=== PATIENT | male | born 1955 | race Caucasian/White ===

== ENCOUNTER 2017-11-29 10:42 | Observation (INO) ==
[2017-11-29 11:20] LABS: Basophils % 0.3 %; Eosinophils # 0.3 K/mcL (0.0-0.6); Eosinophils % 2.8 %; Hematocrit 40.8 % (37.5-50.1); Hemoglobin 13.9 g/dL (12.9-16.9); Immature Granulocytes % 0.2 % (0-4); Lymphocytes # 2.5 K/mcL (0.6-4.6); Lymphocytes % 28.2 %; Mean Corpuscular HGB Conc 34.1 g/dL (31.6-35.5); Mean Corpuscular Hemoglobin 29.4 pg (28.0-33.3); Mean Corpuscular Volume 86.4 fL (83.0-100.0); Mean Platelet Volume 8.7 fL (9.4-12.4); Monocytes # 0.6 K/mcL (0.0-1.3); Monocytes % 7.1 %; Neutrophils # 5.5 K/mcL (1.6-8.9); Platelet Count 253 K/mcL (140-400); Red Blood Count 4.72 M/mcL (4.19-5.50); Red Cell Distribution Width 13.9 % (11.5-14.5); Segmented Neutrophils % 61.4 %
[2017-11-29 11:26] LABS: Bilirubin,Urine Negative (Negative); Blood,Urine Negative (Negative); Clarity,Urine Clear (Clear); Color,Urine Yellow (Yellow); Glucose,Urine (UA) >=1000 mg/dL (Normal); Ketones,Urine Negative (Negative); Leukocyte Esterase,Urine Negative (Negative); Nitrite,Urine Negative (Negative); Protein,Urine Negative (Neg-Trace); Specific Gravity,Urine 1.016 (1.010-1.025); Urobilinogen,Urine Normal (Normal)
--- NOTE | 2017-11-29 11:29 | Emergency Department Note ---
Disposition Clinical Impression: Abdominal pain Qualifiers: Abdominal location: left lower quadrant Qualified Code(s): R10.32 - Left lower quadrant pain Disposition: Admitted As Inpatient Condition: Good Instructions: Abdominal Pain (ED) Reasons to Return/Additional Instructions: Return for worsening symptoms problems or concerns. Referrals: Corine Navarrete MANAGER INSURANCE [Primary Care Provider] - Ruben Blackwell DO [Partnered Physician] - Forms: ED Satisfaction Letter, Work/School Release Time of Disposition: 14:26 Abdominal Pain HPI - General Chief Complaint: ED Abdominal Pain Stated Complaint: ABD Pain(sent from PCP) Time Seen by Provider: 11/29/17 10:49 Source: patient Mode of arrival: ambulatory Limitations: no limitations Nursing Notes Reviewed: Yes Vital Signs Reviewed: Yes - History of Present Illness HPI Narrative: 62-year-old with a history of diverticular disease and had a colonoscopy done whose had persistent abdominal pain for the last several weeks. Patient was placed on antibiotics really hasn't gotten any better. Patient was seen by gastroenterology today concern was persistent diverticular disease versus abscess. Pt Subjective Complaint: abdominal pain Onset (ago): week(s) Consistency: constant Location: LLQ Pain Scale: 7 Quality: aching Radiation: none Migration to: no migration Improves with: nothing Worsens with: nothing Associated symptoms: Reports: denies other symptoms Treatments prior to arrival: none - Related Data Previous Rx's Medication Instructions Recorded cephALEXin [Keflex] 500 mg PO TID 10 Days capsule 08/16/16 Allergies Allergy/AdvReac Type Severity Reaction Status Date / Time No Known Allergies Allergy Verified 08/16/16 15:58 All systems ED: reviewed and negative except as stated. Constitutional: Denies: fever, chills, weakness, weight change Eyes: Denies: eye pain, eye discharge, vision change ENT ED: Denies: ear pain, throat pain, dental pain, hearing loss, epistaxis, congestion, dysphagia Cardiovascular: Denies: chest pain, palpitations, dyspnea on exertion, edema, syncope Respiratory: Denies: cough, dyspnea, wheezes, hemoptysis, stridor Gastrointestinal: Reports: abdominal pain. Denies: nausea, vomiting, diarrhea, constipation, hematemesis, melena, hematochezia Genitourinary: Denies: urgency, dysuria, frequency, hematuria Musculoskeletal: Denies: back pain, neck pain, arthralgia, myalgia Integumentary: Denies: rash, abrasion, lesions Neurological: Denies: headache, weakness, numbness, paresthesias, confusion, abnormal gait, vertigo Psychiatric: Denies: anxiety, depression, suicidal thoughts, homicidal thoughts , auditory hallucinations, visual hallucinations Endocrine: Denies: fatigue Hematological/Lymphatic: Denies: easy bleeding, easy bruising Allergic/Immunologic: Denies: facial swelling, urticaria Abdominal Pain PMH - Past Medical History Medical history: Reports: diabetes, hyperlipidemia Male Surgical History: Reports: other Psychiatric history: Reports: no psych history - Social History Smoking status: Former smoker Alcohol use: Reports: none Drug use: Reports: none Physical Exam - General Limitations: no limitations General appearance: alert - Head Head exam: atraumatic, normocephalic, normal inspection - Eye Eye exam: Present: normal appearance, PERRL, EOMI - ENT ENT exam: normal exam, normal oropharynx, mucous membranes moist - Neck Neck exam: Present: normal inspection, full ROM, trachea midline - Respiratory Respiratory exam: Present: normal lung sounds bilaterally - Cardiovascular Cardiovascular exam: Present: regular rate, normal rhythm, normal heart sounds - Abdominal Exam Abdominal exam: Present: tenderness. Absent: guarding, rebound Abdominal tenderness: Present: LLQ - Extremities Exam Extremities exam: Present: normal inspection, full ROM. Absent: tenderness, pedal edema - Expanded Lower Extremity Exam Neurovascular/Tendon exam: Absent: motor deficit, sensory deficit, tendon deficit Gait: observed and normal - Back Exam Back exam: Present: normal inspection, full ROM. Absent: tenderness - Neurological Exam Neurological exam: Present: alert, oriented X3 - Psychiatric Psychiatric exam: Present: normal affect, normal mood - Skin Skin exam: Present: warm, dry, intact, normal color Course - Reevaluation(s) Reevaluation #1: 62-year-old with persistent abdominal pain for last several weeks. Patient has seen gastroenterology had a colonoscopy that showed diverticulosis. The patient has had kidney stones in the past. Patient was sent here by gastroenterology for CT with contrast to rule out abscess or diverticulitis. CT was negative white counts normal urine is clear. I do not find an etiology for his abdominal pain. I'm going to send him to surgery as he did seem to have a little bit of weakness to the distal left of midline and lower abdominal wall. Time: 14:25 - Consultations Consultation #1: Discussed with the Katy Belcher. Time: 15:55 Consultation #2: Stress with Dr. Obando, admit. Time: 15:56 Vital Signs Temperature 97.7 F 11/29/17 10:45 Pulse Rate 76 11/29/17 10:45 Respiratory Rate 18 11/29/17 10:45 Blood Pressure 154/93 11/29/17 10:45 O2 Sat by Pulse Oximetry 100 11/29/17 10:45 Temperature 97.7 F 11/29/17 10:45 Pulse Rate 80 11/29/17 15:44 Respiratory Rate 15 11/29/17 15:44 Blood Pressure 146/92 11/29/17 15:44 O2 Sat by Pulse Oximetry 98 11/29/17 15:44 Oxygen Delivery Oxygen Delivery Room Air Abdominal Pain - Lab Data Lab results reviewed: Yes I reviewed the patient's lab results. Result diagrams: 11/29/17 11:12 11/29/17 11:12 Lab Results 11/29/17 11/29/17 11/29/17 Range/Units 11:12 11:12 11:15 WBC 9.0 (4.3-11.1) K/mcL RBC 4.72 (4.19-5.50) M/mcL Hgb 13.9 (12.9-16.9) g/dL Hct 40.8 (37.5-50.1) % MCV 86.4 (83.0-100.0) fL MCH 29.4 (28.0-33.3) pg MCHC 34.1 (31.6-35.5) g/dL RDW 13.9 (11.5-14.5) % Plt Count 253 (140-400) K/mcL MPV 8.7 L (9.4-12.4) fL Immature Gran % 0.2 (0-4) % Seg Neutrophils % 61.4 % Lymphocytes % 28.2 % Monocytes % 7.1 % Eosinophils % 2.8 % Basophils % 0.3 % Neutrophils # 5.5 (1.6-8.9) K/mcL Lymphocytes # 2.5 (0.6-4.6) K/mcL Monocytes # 0.6 (0.0-1.3) K/mcL Eosinophils # 0.3 (0.0-0.6) K/mcL Basophils # 0.0 (0.0-0.2) K/mcL Sodium 137 (136-145) mEq/L Potassium 4.4 (3.5-5.1) mEq/L Chloride 106 (98-107) mEq/L Carbon Dioxide 28 (23-29) mEq/L BUN 18 (8-23) mg/dL Creatinine 0.87 (0.70-1.30) mg/dL Est GFR ( Amer) > 60 (> 60) Est GFR (Non-Af Amer) > 60 (> 60) BUN/Creatinine Ratio 21 (6-26) Glucose 113 H (70-105) mg/dL Calculated Osmolality 287 (280-300) Calcium 9.1 (8.6-10.3) mg/dL Total Bilirubin 0.4 (0.3-1.0) mg/dL Direct Bilirubin 0.1 (0.0-0.2) mg/dL Indirect Bilirubin 0.3 (0.0-1.2) mg/dL AST 21 (13-39) Units/L ALT 25 (7-52) Units/L Alkaline Phosphatase 58 (34-104) Units/L Serum Total Protein 7.2 (6.4-8.9) g/dL Albumin 4.0 (3.5-5.7) g/dL Globulin 3.2 (2.4-3.5) g/dL Albumin/Globulin Ratio 1.3 (1.1-2.2) Amylase 52 (29-103) Units/L Lipase 38 (11-82) Units/L Urine Color Yellow (Yellow) Urine Clarity Clear (Clear) Urine pH 6.0 (5.0-8.0) pH Units Ur Specific [place] 1.016 (1.010-1.025) Urine Protein Negative (Neg-Trace) mg/dL Urine Glucose (UA) >=1000 H (Normal) mg/dL Urine Ketones Negative (Negative) mg/dL Urine Blood Negative (Negative) Urine Nitrite Negative (Negative) Urine Bilirubin Negative (Negative) Urine Urobilinogen Normal (Normal) mg/dL Ur Leukocyte Esterase Negative (Negative) Ur Culture Indicated? NO (NO) - Radiology Data Radiology results reviewed: Yes I reviewed the patient's radiology results. Abdomen/Pelvis CT 11/29/17 12:30 IMPRESSION: 1. No CT finding to account for patient's left lower quadrant abdominal pain. D/ / 11/29/2017 13:19:40 Ahmet Russell MD / trena Interpreting Provider: Ahmet Russell MD
[2017-11-29 11:43] LABS: Alanine Aminotransferase 25 Units/L (7-52); Albumin/Globulin Ratio 1.3 (1.1-2.2); Alkaline Phosphatase 58 Units/L (34-104); Amylase 52 Units/L (29-103); Aspartate Amino Transferase 21 Units/L (13-39); BUN/Creatinine Ratio 21 (6-26); Bilirubin,Direct 0.1 mg/dL (0.0-0.2); Bilirubin,Indirect 0.3 mg/dL (0.0-1.2); Bilirubin,Total 0.4 mg/dL (0.3-1.0); Blood Urea Nitrogen 18 mg/dL (8-23); Calcium 9.1 mg/dL (8.6-10.3); Carbon Dioxide 28 mEq/L (23-29); Chloride 106 mEq/L (98-107); Globulin 3.2 g/dL (2.4-3.5); Glucose 113 mg/dL (70-105); Lipase 38 Units/L (11-82); Osmolality,Calculated 287 (280-300); Potassium 4.4 mEq/L (3.5-5.1); Sodium 137 mEq/L (136-145); Total Protein 7.2 g/dL (6.4-8.9); eGFR For African Americans > 60 (> 60); eGFR For Non-African Americans > 60 (> 60)
[2017-11-29] MEDS: cefTRIAXone 2,000 MG in Water for inj. (sterile) 20 ML IVP SCH (17:32)
--- NOTE | 2017-11-29 17:53 | Gastroenterology Consult Note ---
Date of Encounter: 11/29/17 Time of Encounter: 17:49 - Assessment and plan (1) Abdominal pain Current Visit: Yes Status: Acute Qualified Code(s): R10.32 - Left lower quadrant pain - Time Spent With Patient Total time spent is greater than 50% in coordination of care (as documented) at patient's floor/unit and/or counseling patient: 25 - 35 minutes GI History of Present Illness - Data of Consult Requesting Physician: Dilshad Santos - Consult Narrative History of present illness: Mr. Donohue is a 62 year old male who presents with LLQ pain and not feeling well for the past 10 days. He had been to the ED at [place] and had a noncontrast CT of the abdomen and pelvis and discharged home about 10 days ago. He saw me in clinic about a week ago with the same complaint. A presumptive diagnosis of acute diverticulitis was made and patient treated with Cipro and Flagyl. He could not tolerate Flagyl and was continued on Cipro and saw me today but, reported no improvement in his symptoms. I sent him down to the ED to be worked up. A contrast CT of the abd and pelvis was negative. He was then admitted for a course of IV Antibiotics and bowel rest. Past Med Surg Social Fam HX - Past Medical History Medical history: diabetes, hyperlipidemia Psychiatric history: no psych history - Social History Smoking Status: Former smoker Smokeless Tobacco Status: No Alcohol use: none Drug use: none - Gastrointestinal Gastrointestinal: Present: as per HPI - Constitutional Constitutional: as per HPI, fatigue - Constitutional Vitals: Temp Pulse Resp BP Pulse Ox 97.1 F L 90 16 137/87 97 11/29/17 17:34 11/29/17 17:34 11/29/17 17:34 11/29/17 17:34 11/29/17 17:34 Results - Labs CBC & Chem 7: 11/29/17 11:12 11/29/17 11:12 Labs: Last Result Calcium 9.1 mg/dL (8.6-10.3) 11/29/17 11:12 Entire Visit Hgb 13.9 g/dL (12.9-16.9) 11/29/17 11:12 Hct 40.8 % (37.5-50.1) 11/29/17 11:12 Total Bilirubin 0.4 mg/dL (0.3-1.0) 11/29/17 11:12 AST 21 Units/L (13-39) 11/29/17 11:12 ALT 25 Units/L (7-52) 11/29/17 11:12 Amylase 52 Units/L (29-103) 11/29/17 11:12 Lipase 38 Units/L (11-82) 11/29/17 11:12 Consult Discharge Plan - Plan Referrals: Corine Navarrete, PROPERTY INSPECTOR [Primary Care Provider] -
--- NOTE | 2017-11-29 18:16 | Internal Med History&Physical ---
Date of Encounter: 11/29/17 Time of Encounter: 18:14 Assessment and Plan (1) Diabetes 1.5, managed as type 2 Current visit: Yes Status: Acute Chronic we will resume home medication and place on sliding scale (2) Hyperlipemia Current visit: Yes Status: Chronic Chronic Qualifiers: Hyperlipidemia type: pure hypercholesterolemia Qualified Code(s): E78.00 - Pure hypercholesterolemia, unspecified; E78.0 - Pure hypercholesterolemia (3) Obesity Current visit: Yes Status: Chronic Qualifiers: Obesity type: due to excess calories Obesity classification: adult class 2 (BMI 35 - 39.9) Serious obesity comorbidity presence: unspecified whether serious comorbidity present Body mass index: unspecified BMI Qualified Code( s): E66.09 - Other obesity due to excess calories (4) Abdominal pain Current visit: Yes Status: Acute y due to diverticulitis she in the rash enterologist started back on antibiotic Qualifiers: Abdominal location: left lower quadrant Qualified Code(s): R10.32 - Left lower quadrant pain Internal Medicine - H&P: HPI Chief complaint: abd pain Admitted From: Emergency Dept Plans for Post Hospital Care: Home History of present illness: Mr. Donohue is a 62 year old male Patient with history of obesity, diabetes, high cholesterol, patient was sent from GI office due to persistent abdominal pain ongoing and recurrent for about 4 week he was treated for diverticulitis but he was unable to tolerate some of the antibiotics patient now being admitted for further IV antibiotic treatment he has some diarrhea yesterday no nausea no vomiting patient was seen in the office and also seenin emergency room by a brick mason the consultation note noted Past Med Surg Social Fam HX - Past Medical History Medical history: diabetes, hyperlipidemia Psychiatric history: no psych history - Social History Smoking Status: Former smoker Smokeless Tobacco Status: No Alcohol use: none Drug use: none Internal Medicine - H&P: Meds cephALEXin [Keflex] 500 mg PO TID 10 Days capsule 08/16/16 [Rx] 3 Allergy/AdvReac Type Severity Reaction Status Date / Time No Known Allergies Allergy Verified 08/16/16 15:58 All Systems PM: A 10-system review of systems was performed and is negative for pertinent findings except as documented above in the HPI. - Constitutional Constitutional: no chills, no fever(s), no night sweats - EENT Eyes: no change in vision, no discharge, no pain, no photophobia Ears: no ear discharge, no ear pain, no tinnitus Nose, mouth and throat: no dysphagia, no nasal discharge, no neck pain, no sore throat - Cardiovascular Cardiovascular ROS IM: no chest pain, no diaphoresis, no dyspnea, no lightheadedness, no palpitations, no syncope - Respiratory Respiratory: no cough, no dyspnea, no wheezing, no excessive phlegm production - Gastrointestinal Gastrointestinal: abdominal pain, bloating, diarrhea - Musculoskeletal Musculoskeletal ROS IM: no numbness, no tingling - Constitutional Vitals: Temp Pulse Resp BP Pulse Ox 97.1 F L 90 16 137/87 97 11/29/17 17:34 11/29/17 17:34 11/29/17 17:34 11/29/17 17:34 11/29/17 17:34 - Eye Eye exam: Present: PERRL, conjuntiva pink, sclera anicteric Pupils: Present: PERRL - Neck Neck exam general surgery: Present: supple, trachea midline. Absent: lymphadenopathy - Respiratory Respiratory exam: Present: CTAB. Absent: accessory muscle use, rales, rhonchi, wheezes - Cardiovascular Cardiovascular exam: Present: RRR, +S1, +S2. Absent: diastolic murmur, gallop, rubs, systolic murmur - GI/Abdominal GI/Abdominal exam: Present: distended, tenderness - Extremities Exam Extremities exam: Present: warm, radial pulses palpable and symmetrical. Absent : calf tenderness, cyanotic, pedal edema Internal Med - H&P Results - Labs CBC & Chem 7: 11/29/17 11:12 11/29/17 11:12
[2017-11-29] MEDS ORDERED: Naloxone 0.4 MG/ML INJ IVP PRN (18:21)
[2017-11-29] MEDS ORDERED: Acetaminophen 325 MG TABLET PO PRN (18:21)
[2017-11-29] MEDS ORDERED: D5% in Water 1,000 ML IVC PRN (18:26)
[2017-11-29] MEDS ORDERED: Dextrose Gel 15 GM/37.5 ML TUBE PO PRN ×2 (18:26)
[2017-11-29] MEDS ORDERED: *HR* Dextrose 50 % in Water (Syg) 50 ML SYRINGE IVP PRN (18:26)
[2017-11-29] MEDS: 0.9 % Sodium Chloride 1,000 ML IVC SCH (18:38)
[2017-11-30 05:14] LABS: Hematocrit 38.8 % (37.5-50.1); Hemoglobin 12.9 g/dL (12.9-16.9); Mean Corpuscular HGB Conc 33.2 g/dL (31.6-35.5); Mean Corpuscular Hemoglobin 28.9 pg (28.0-33.3); Mean Corpuscular Volume 86.8 fL (83.0-100.0); Mean Platelet Volume 9.1 fL (9.4-12.4); Platelet Count 253 K/mcL (140-400); Red Blood Count 4.47 M/mcL (4.19-5.50); Red Cell Distribution Width 14.1 % (11.5-14.5)
[2017-11-30 05:24] LABS: Alanine Aminotransferase 21 Units/L (7-52); Albumin 3.5 g/dL (3.5-5.7); Albumin/Globulin Ratio 1.3 (1.1-2.2); Alkaline Phosphatase 50 Units/L (34-104); Aspartate Amino Transferase 19 Units/L (13-39); BUN/Creatinine Ratio 16 (6-26); Bilirubin,Total 0.5 mg/dL (0.3-1.0); Blood Urea Nitrogen 13 mg/dL (8-23); Calcium 8.3 mg/dL (8.6-10.3); Carbon Dioxide 25 mEq/L (23-29); Chloride 108 mEq/L (98-107); Chol/HDL Ratio 3.9 (0-4.9); Cholesterol 144 mg/dL (< 200); Globulin 2.8 g/dL (2.4-3.5); Glucose 99 mg/dL (70-105); HDL Cholesterol 37 mg/dL (40-59); LDL Cholesterol,Calculated 84 mg/dL (0-99); Magnesium 1.9 mg/dL (1.6-2.6); Osmolality,Calculated 286 (280-300); Potassium 3.9 mEq/L (3.5-5.1); Sodium 138 mEq/L (136-145); Total Protein 6.3 g/dL (6.4-8.9); Triglycerides 113 mg/dL (< 150); eGFR For African Americans > 60 (> 60); eGFR For Non-African Americans > 60 (> 60)
[2017-11-30] MEDS: *HR* Enoxaparin 40 MG/0.4 ML SYRINGE SQ SCH (05:47)
[2017-11-30] MEDS: 0.9 % Sodium Chloride 1,000 ML IVC SCH (07:00)
[2017-11-30] MEDS: Insulin LISPRO 300 UNITS/3 ML VIAL SQ SCH ×3 (07:30→16:27)
--- NOTE | 2017-11-30 08:55 | Internal Med Progress Note ---
<Galina Varela - Last Filed: 11/30/17 10:21> Date of Encounter: 11/30/17 Time of Encounter: 08:52 - Assessment and plan (1) Abdominal pain Current Visit: Yes Status: Acute Assessment and plan: Hypogastric and LLQ tenderness, pressure and bloating. Treated for diverticulitis due to recent colonscopy showing diverticulum by Dr. Pat who recommended that patient go into ED. He has been on PO antibiotis by Dr. Pat for suspected diverticulitis. CT Abd demonstrated no acute process. afebrile, WBC WNL - Rocephin day 2 -soft diet - supportive care -PPI Qualifiers: Abdominal location: left lower quadrant Qualified Code(s): R10.32 - Left lower quadrant pain (2) Diabetes 1.5, managed as type 2 Current Visit: Yes Status: Acute Assessment and plan: - Sliding scale insulin - Continue home medications (3) Hyperlipemia Current Visit: Yes Status: Chronic Assessment and plan: Chronic - Continue with home medication Qualifiers: Hyperlipidemia type: pure hypercholesterolemia Qualified Code(s): E78.00 - Pure hypercholesterolemia, unspecified; E78.0 - Pure hypercholesterolemia (4) Obesity Current Visit: Yes Status: Chronic 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 He is resting comfortably and eating breakfast. Patient states that he is feeling much improved since yesterday and that he is currently not in any pain but still has abdominal pressure. he states that he ate yesterday afternoon and that he had a normal bowel movement this morning. He does request that Protonix be ordered for him as he is on it at home and gets reflux without it. Otherwise he has not acute complaints. - Constitutional Vitals: Temp Pulse Resp BP Pulse Ox 98.0 F 73 14 112/71 97 11/30/17 07:24 11/30/17 07:24 11/30/17 07:24 11/30/17 07:24 11/30/17 07:24 General appearance: Present: A&O X 3, pleasant, no acute distress, obese, answers questions appropriately - Head Head exam: Present: normal inspection - Neck Neck exam general surgery: Present: normal inspection - Respiratory Respiratory exam: Present: CTAB. Absent: accessory muscle use, rales, rhonchi, wheezes - Cardiovascular Cardiovascular exam: Present: RRR - GI/Abdominal GI/Abdominal exam: Present: normal bowel sounds, soft, tenderness (hypogastric) , no peritoneal signs. Absent: distended, firm, guarding, rigid - Neurological Exam Neurological exam: Present: alert, oriented X3 - Skin Skin exam: Present: dry, normal color, warm Internal Medicine: Result - Labs CBC & Chem 7: 11/30/17 04:23 11/30/17 04:23 Labs: Short CBC 11/30/17 Range/Units 04:23 WBC 8.0 (4.3-11.1) K/mcL Hgb 12.9 (12.9-16.9) g/dL Hct 38.8 (37.5-50.1) % Plt Count 253 (140-400) K/mcL BMP 11/30/17 04:23 Sodium 138 Potassium 3.9 Chloride 108 H Carbon Dioxide 25 BUN 13 Creatinine 0.79 Glucose 99 Calcium 8.3 L Cardiac Enzymes 11/29/17 Range/Units 19:39 Troponin I < 0.03 (< 0.04) ng/mL Liver Function 11/30/17 Range/Units 04:23 Total Bilirubin 0.5 (0.3-1.0) mg/dL AST 19 (13-39) Units/L ALT 21 (7-52) Units/L Alkaline Phosphatase 50 (34-104) Units/L Albumin 3.5 (3.5-5.7) g/dL Consult Discharge Plan - Plan Referrals: Corine Navarrete, STOCK LIFTER [Primary Care Provider] - <Dilshad Santos H - Last Filed: 11/30/17 10:45> Date of Encounter: 11/30/17 - Constitutional Vitals: Temp Pulse Resp BP Pulse Ox 98.0 F 73 14 112/71 97 11/30/17 07:24 11/30/17 07:24 11/30/17 07:24 11/30/17 07:24 11/30/17 10:22 Internal Medicine: Result - Labs CBC & Chem 7: 11/30/17 04:23 11/30/17 04:23 Labs: Short CBC 11/30/17 Range/Units 04:23 WBC 8.0 (4.3-11.1) K/mcL Hgb 12.9 (12.9-16.9) g/dL Hct 38.8 (37.5-50.1) % Plt Count 253 (140-400) K/mcL BMP 11/30/17 04:23 Sodium 138 Potassium 3.9 Chloride 108 H Carbon Dioxide 25 BUN 13 Creatinine 0.79 Glucose 99 Calcium 8.3 L Cardiac Enzymes 11/29/17 Range/Units 19:39 Troponin I < 0.03 (< 0.04) ng/mL Liver Function 11/30/17 Range/Units 04:23 Total Bilirubin 0.5 (0.3-1.0) mg/dL AST 19 (13-39) Units/L ALT 21 (7-52) Units/L Alkaline Phosphatase 50 (34-104) Units/L Albumin 3.5 (3.5-5.7) g/dL - Attending Attestation Acute diverticulitis that failed outpatient therapy Continue Rocephin day 2 May try clear liquids per GI I examined this patient and my medical decision-making was reviewed with the Resident Physician. I agree with the documented findings, disposition and treatment plan as described except to the extent set forth below.
--- NOTE | 2017-11-30 09:55 | Event Note ---
<Rupa Belcher - Last Filed: 11/30/17 09:53> Date of Encounter: 11/30/17 Time of Encounter: 09:25 Pt seen in follow up per Dr Pta's request. He is awake and sitting on the side of the bed. He was given a regular diet yesterday and had some lower abdominal pain following. He needs clear liquids only. Will continue IV antibiotics. <Chester Pat - Last Filed: 12/06/17 10:36> Date of Encounter: 11/30/17
[2017-11-30] MEDS: Pantoprazole 40 MG VIAL IVP SCH (10:47)
[2017-11-30] MEDS: cefTRIAXone 2,000 MG in Water for inj. (sterile) 20 ML IVP SCH (16:27)
[2017-11-30] MEDS ORDERED: Insulin LISPRO 300 UNITS/3 ML VIAL SQ SCH (21:00)
[2017-12-01] MEDS: *HR* Enoxaparin 40 MG/0.4 ML SYRINGE SQ SCH (05:53)
[2017-12-01 06:01] LABS: BUN/Creatinine Ratio 13 (6-26); Blood Urea Nitrogen 9 mg/dL (8-23); Calcium 8.5 mg/dL (8.6-10.3); Carbon Dioxide 24 mEq/L (23-29); Chloride 109 mEq/L (98-107); Glucose 106 mg/dL (70-105); Osmolality,Calculated 291 (280-300); Potassium 3.9 mEq/L (3.5-5.1); Sodium 141 mEq/L (136-145); eGFR For African Americans > 60 (> 60); eGFR For Non-African Americans > 60 (> 60)
[2017-12-01 07:20] VITALS: BP 127/84
[2017-12-01] MEDS ORDERED: Loratadine 10 MG TABLET PO SCH (09:00)
[2017-12-01] MEDS ORDERED: Aspirin Enteric Coated 81 MG Tablet PO SCH (09:00)
[2017-12-01] MEDS: Pantoprazole 40 MG VIAL IVP SCH (09:13)
[2017-12-01] MEDS: Insulin LISPRO 300 UNITS/3 ML VIAL SQ SCH (09:13)
--- NOTE | 2017-12-01 09:58 | Discharge Summary ---
<Galina Varela - Last Filed: 12/01/17 09:56> Date of Encounter: 12/01/17 Time of Encounter: 09:45 - Discharge Diagnosis (1) Abdominal pain Priority: Primary Status: Acute Qualifiers: Abdominal location: left lower quadrant Qualified Code(s): R10.32 - Left lower quadrant pain (2) Diabetes 1.5, managed as type 2 Priority: Secondary Status: Acute (3) Hyperlipemia Priority: Secondary Status: Chronic Qualifiers: Hyperlipidemia type: pure hypercholesterolemia Qualified Code(s): E78.00 - Pure hypercholesterolemia, unspecified; E78.0 - Pure hypercholesterolemia (4) Obesity Priority: Secondary Status: Chronic Qualifiers: Obesity type: due to excess calories Obesity classification: adult class 2 (BMI 35 - 39.9) Serious obesity comorbidity presence: unspecified whether serious comorbidity present Body mass index: unspecified BMI Qualified Code( s): E66.09 - Other obesity due to excess calories (5) DVT prophylaxis Priority: Secondary Status: Acute - Discharge Medications Prescriptions: Cefdinir [Omnicef] 300 mg PO BID #10 capsule HYDROcodone/Acet 5/325 mg [[place] 5-325 mg] 1 tab PO Q4H PRN 3 Days #18 tab PRN Reason: Pain Home Medications: Aspirin Enteric Coated [Aspirin EC] 81 mg PO DAILY 11/30/17 [History] Cetirizine HCl [All Day Allergy] 10 mg PO DAILY 11/30/17 [History] Dapagliflozin/Metformin HCl [Xigduo Xr 5 mg-1,000 mg Tablet] 1 tab PO DAILY [History] Dulaglutide [Trulicity] 0.5 ml SQ QWEEK 11/30/17 [History] Lisinopril 2.5 mg PO DAILY 11/30/17 [History] Pantoprazole Sodium 40 mg PO DAILY 11/30/17 [History] Cefdinir [Omnicef] 300 mg PO BID #10 capsule 12/01/17 [Rx] HYDROcodone/Acet 5/325 mg [[place] 5-325 mg] 1 tab PO Q4H PRN 3 Days #18 tab 12/01 [Rx] Allergies/Adverse Reactions: 3 Allergy/AdvReac Type Severity Reaction Status Date / Time No Known Allergies Allergy Verified 08/16/16 15:58 Date of admission: 11/29/17 18:29 Primary care physician: Corine Navarrete CNP Discharging clinician: Dilshad Santos Anticipated date of discharge: 12/01/17 - Patient Status Condition: Good Functional capacity at discharge: independent ambulation Overall status at discharge: patient is progressing back to baseline - Discharge Instructions Instructions: Hydrocodone/Acetaminophen (By mouth), Cefdinir (By mouth), Soft Diet (DC) Follow Up With: Chester Pat MD [Partnered Physician] - (Web Request entered, office will call patient at home with date and time of appt. Thank you) Corine Navarrete CNP [Primary Care Provider] - 12/07/17 11:30 am Additional Instructions: Finished in antibiotic to completion slowly progress from liquid diet to soft diet and then to regular diet. Follow up with Dr. Pat in a week or 2 return to the hospital should be developed fever, chills, worsening abdominal pain - Diet and Activity Activity: resume usual activities as tolerated Diet: advance to your usual diet Hospital course: Mr. Donohue is a 62 year old male Patient with history of obesity, diabetes , high cholesterol, patient was sent from GI office due to persistent abdominal pain ongoing and recurrent for about 4 weeks. He was treated for diverticulitis but he was unable to tolerate some of the antibiotics. He was instructed by Dr. Pat to the hospital. CT Abd demonstrated no acute process. He was admitted for further IV antibiotic treatment. He admitted to some diarrhea yesterday. He denied nausea, vomiting. Patient was seen in the office and also seen in emergency room by a leather tanner. He had a normal level, afebrile , started on a clear liquid diet. He reported improvement in abdominal pain and bloating. Upon discharge he stated that he did for comfortable with continuing the rest of antibiotics outpatient and follow-up with Dr. Pat. He was instructed to slowly increases diet from clear liquids to soft diet to regular food. He was told to return the hospital should be developed fever, chills, worsening abdominal pain. He is alert and oriented times 3 with full capacity. He stated clearly understand treatment plan. - Time Spent with Patient Total time spent providing and/or coordinating discharge services: Greater than 30 minutes - Constitutional Vitals: Temp Pulse Resp BP Pulse Ox 97.7 F 87 15 127/84 95 12/01/17 07:18 12/01/17 07:18 12/01/17 07:18 12/01/17 07:18 12/01/17 07:18 General appearance: Present: A&O X 3, pleasant, no acute distress, obese, answers questions appropriately Exam: Gen.: Vitals noted. No acute distress. AAOx3 HEENT: oropharynx clear, Normocephalic, atraumatic Neck: Supple. No adenopathy. Cardiac: RRR, no murmur, +S1/S2 Pulmonary: CTA bilaterally, no wheezes, rales or rhonchi, equal chest expansion Abdomen: soft, minimal left lower and hypogastric tender, Bowel sounds noted, no guarding MSK: ROM intact, no joint swelling noted Extremities: no BLE edema, nontender calf, no cyanosis or clubbing Neuro: A&Ox3, moves all extremities, no focal deficits Psych: Appropriate mood and behavior <Dilshad Santos H - Last Filed: 12/01/17 11:51> Date of Encounter: 12/01/17 Date of admission: 11/29/17 16:38 Primary care physician: Corine Navarrete CNP Hospital course: Mr. Donohue is a 62 year old male - Time Spent with Patient Total time spent providing and/or coordinating discharge services: - Constitutional Vitals: Temp Pulse Resp BP Pulse Ox 97.7 F 87 15 127/84 95 12/01/17 07:18 12/01/17 07:18 12/01/17 07:18 12/01/17 07:18 12/01/17 07:18 - Attending Attestation Intractable abdominal pain likely secondary to acute diverticulitis that improved with IV antibiotics Continue cefdinir Time spent on this discharge 40 minutes I examined this patient and my medical decision-making was reviewed with the Resident Physician. I agree with the documented findings, disposition and treatment plan as described except to the extent set forth below.
== END 2017-12-01 12:56 | disposition home or self-care (01) ==
LOC: EMEROO 10:42 → 3ANU 10:42
PROVIDERS: ADMIT Internal Medicine; ATTEND Internal Medicine